=== PATIENT | female | born 2000 | race African-American/Black ===

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

== ENCOUNTER 2022-11-07 17:16 | Emergency (ER) | payer OTHER, SELFPAY ==
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
[2022-11-07 17:40] VITALS: BP 147/97; PULSE 124; RESP 18; TEMP 36.4; O2SAT 97; BMI 35.9
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
--- NOTE | 2022-11-07 17:47 | ECG_ITS ---
Test Reason : CHEST PAIN Blood Pressure : / mmHG Vent. Rate : 129 BPM Atrial Rate : 129 BPM P-R Int : 136 ms QRS Dur : 074 ms QT Int : 306 ms P-R-T Axes : 056 045 012 degrees QTc Int : 448 ms Sinus tachycardia Possible Left atrial enlargement Nonspecific ST abnormality Abnormal ECG No previous ECGs available Referred By: Vikki Barber Electronically Signed By:Michael Rubi
[2022-11-07 18:25] VITALS: BP 145/80; PULSE 120; TEMP 36.9; O2SAT 100
[2022-11-07] MEDS: Ketorolac Tromethamine 15 MG/ML VIAL IM (18:31)
== END 2022-11-07 18:40 | disposition home or self-care (01) ==
PROVIDERS: Emergency Provider Emergency Medicine
DX: Z04.1 Encounter for examination and observation following transport accident (principal); M54.50 Low back pain, unspecified
CPT/HCPCS: 72072; 72100; 93005; 96372; 99284; J1885